=== PATIENT | female | born 1995 | race Caucasian/White ===

== ENCOUNTER 2017-09-13 08:19 | Emergency (ER) | payer OTHER ==
[2017-09-13 08:26] VITALS: BP 115/80; TEMP 99; BMI 32.8
[2017-09-13] MEDS ORDERED: SODIUM CHLORIDE 1,000 ML IV STA ×2 (08:34→11:37)
--- NOTE | 2017-09-13 10:34 | CT ---
EXAM: CT ABDOMEN AND PELVIS HISTORY: Abdominal pain with nausea and vomiting and diarrhea. Previous appendectomy. TECHNIQUE: CT abdomen and pelvis without intravenous contrast. Images were reconstructed using 5 mm section thickness. Reformations were prepared. COMPARISON: 05/19/2010 FINDINGS: Diagnostic limitations exist without including contrast enhanced images. No focal hepatic or splenic lesions. Gallbladder, pancreas, adrenal glands, kidneys and ureters appear normal. Normal abdomina l aorta. Several mesenteric root lymph nodes remain sub-centimeter. Stomach is normal. Appendix has been removed. There is fluid consistency stool in the rectum. Gener al bowel gas pattern is nonobstructive. Uterus and urinary bladder appear normal. No ascites. Ventral abdominal wall is intact. Bones appear normal and lung bases clear. No pneumoperitoneum. IMPRESSION: 1. Fluid consistency stool within the rectum consistent with the patient's history of diarrhea. [place] el gas pattern is normal. No convincing CT evidence of active enterocolitis currently seen. No free air or ascites. 2. Several prominent mesenteric root lymph nodes may be normal for a patient of this age. Mild mese nteric adenitis not excluded.
--- NOTE | 2017-09-13 10:36 | DI ---
EXAM: Chest two views HISTORY: Cough COMPARISON: 07/26/2008 TECHNIQUE: Two views of the chest were performed FINDINGS: The lungs are clear. There is no pleural effusion or pneumothorax. The heart is normal i n size. The mediastinal contour is normal. There are no acute abnormalities of the bones. IMPRESSION: No acute cardiopulmonary process.
[2017-09-13] MEDS ORDERED: TORADOL IVP STA (10:48)
[2017-09-13] MEDS ORDERED: ZOFRAN 4 MG/2 ML IVP STA (10:49)
--- NOTE | 2017-09-13 12:15 | ED.PDOC ---
General ED Provider: Dr. REYES PEREZ Chief Complaint: Nausea/Vomiting Stated Complaint: abdominal pain Time Seen by Physician: 08:30 Mode of Arrival: Walk-In Information Source: Patient Exam Limitations: No limitations Primary Care Provider: LYN RANDALL Nursing and Triage Documentation Reviewed and Agree: Yes Reviewed sepsis parameters & appropriate labs ordered?: Yes System Inflammatory Response Syndrome: Not Applicable Sepsis Protocol: For patient's 13 years and over: Temp is 96.8 and below OR 101 and greater Pulse >90 BPM Resp >20/minute Acutely Altered Mental Status Are patient's symptoms suggestive of a new infection, such as: -Pneumonia -Skin, Soft Tissue -Endocarditis -UTI -Bone, Joint Infection -Implantable Device -Acute Abdominal Infection -Wound Infection -Meningitis -Blood Stream Catheter Infection -Unknown System Inflammatory Response Syndrome: Not Applicable GI Complaint Exam - Vomiting/Diarrhea Complaint/Exam Onset/Duration: 1 day Episodes of Vomiting over last 24 Hours: 1 Episodes of Diarrhea Over Last 24 Hours: 8 Initial Severity: Moderate Current Severity: Moderate Character of Vomiting: Reports: Non-bilious Aggravating: Reports: None Alleviating: Reports: None Associated Signs and Symptoms: Denies: Dizziness, Light-headedness, Melena, Hematemesis, Fever, Abdominal pain, Cramping Non-GI Risk Factors: Reports: None Surgical Obstruction Risk Factors: Reports: None Related Surgical History: Reports: None Abdominal Findings: Present: None Review of Systems - Review Of Systems Constitutional: Reports: No symptoms Eyes: Reports: No symptoms Ears, Nose, Mouth, Throat: Reports: No symptoms Respiratory: Reports: No symptoms Cardiac: Reports: No symptoms GI: Reports: Abdominal pain, Diarrhea : Reports: No symptoms Musculoskeletal: Reports: No symptoms Skin: Reports: No symptoms Neurological: Reports: No symptoms Endocrine: Reports: No symptoms Hematologic/Lymphatic: Reports: No symptoms All Other Systems: Reviewed and Negative Past Medical History - Past Medical History Previously Healthy: Yes Endocrine: Reports: None Cardiovascular: Reports: None Respiratory: Reports: Asthma Hematological: Reports: None Gastrointestinal: Reports: None Genitourinary: Reports: None Neuro/Psych: Reports: None Musculoskeletal: Reports: None Cancer: Reports: None Last Menstrual Period: - Surgical History General Surgical History: Reports: Unknown - Family History Family History: Reports: Unknown - Social History Smoking Status: Never smoker Hx Substance Use: No Alcohol Screening: None Physical Exam - Physical Exam Appearance: Well-appearing, No pain distress, Well-nourished Eyes: ANIA, EOMI, Conjunctiva clear ENT: Ears normal, Nose normal, Oropharynx normal Respiratory: Airway patent, Breath sounds clear, Breath sounds equal, Respirations nonlabored Cardiovascular: RRR, Pulses normal, No rub, No murmur GI/: Soft, Nontender, No masses, Bowel sounds normal, No Organomegaly Musculoskeletal: Normal strength, ROM intact, No edema, No calf tenderness Skin: Warm, Dry, Normal color Neurological: Sensation intact, Motor intact, Reflexes intact, Cranial nerves intact, Alert, Oriented Psychiatric: Affect appropriate, Mood appropriate Interpretation - Radiology Interpretation Radiology Interpretation By: Radiologist Radiology Results: No acute changes Critical Care Note - Critical Care Note Total Time (mins): 0 Course - Course Hematology/Chemistry: 09/13/17 08:41 Orders, Labs, Meds: Lab Review 09/13/17 09/13/17 09/13/17 08:41 08:41 08:41 WBC 11.57 H RBC 4.58 Hgb 13.8 Hct 39.7 MCV 86.7 MCH 30.1 MCHC 34.8 RDW Coeff of Lc 12.6 Plt Count 297 Immature Gran % (Auto) 0.3 Neut % (Auto) 88.3 Lymph % (Auto) 7.5 L [place] % (Auto) 3.4 Eos % (Auto) 0.2 Baso % (Auto) 0.3 Immature Gran # (Auto) 0.0 Neut # 10.2 H Lymph # 0.9 [place] # 0.4 Eos # 0.0 Baso # 0.0 Lactic Acid 5.7 Amylase 38 Lipase 17 Procalcitonin Serum , Qual Urine Color Urine Clarity Urine pH Ur Specific [place] Urine Protein Urine Glucose (UA) Urine Ketones Urine Blood Urine Nitrite Urine Bilirubin Urine Urobilinogen Ur Leukocyte Esterase Influenza A (Rapid) Influenza B (Rapid) 09/13/17 09/13/17 09/13/17 08:41 08:41 08:49 WBC RBC Hgb Hct MCV MCH MCHC RDW Coeff of Lc Plt Count Immature Gran % (Auto) Neut % (Auto) Lymph % (Auto) [place] % (Auto) Eos % (Auto) Baso % (Auto) Immature Gran # (Auto) Neut # Lymph # [place] # Eos # Baso # Lactic Acid Amylase Lipase Procalcitonin 0.07 Serum , Qual Negative Urine Color Urine Clarity Urine pH Ur Specific [place] Urine Protein Urine Glucose (UA) Urine Ketones Urine Blood Urine Nitrite Urine Bilirubin Urine Urobilinogen Ur Leukocyte Esterase Influenza A (Rapid) Negative by naat Influenza B (Rapid) Negative by naat 09/13/17 09:55 WBC RBC Hgb Hct MCV MCH MCHC RDW Coeff of Lc Plt Count Immature Gran % (Auto) Neut % (Auto) Lymph % (Auto) [place] % (Auto) Eos % (Auto) Baso % (Auto) Immature Gran # (Auto) Neut # Lymph # [place] # Eos # Baso # Lactic Acid Amylase Lipase Procalcitonin Serum , Qual Urine Color Yellow Urine Clarity Clear Urine pH 6.0 Ur Specific [place] 1.020 Urine Protein Negative Urine Glucose (UA) Negative Urine Ketones 1+ Urine Blood Negative Urine Nitrite Negative Urine Bilirubin Negative Urine Urobilinogen 0.2 Ur Leukocyte Esterase Negative Influenza A (Rapid) Influenza B (Rapid) Orders Category Date Time Status ED IV/MEDIPORT/POWERPORT .ONCE EMERGENCY 09/13/17 08:34 Active AMYLASE Stat LAB 09/13/17 08:41 Completed BLOOD CULTURE (ED ONLY) Stat LAB 09/13/17 08:41 Received CBC W/ AUTO DIFF Stat LAB 09/13/17 08:41 Completed FLU A/B MOLECULAR Stat LAB 09/13/17 08:49 Completed LACTIC ACID Stat LAB 09/13/17 08:41 Completed LIPASE Stat LAB 09/13/17 08:41 Completed MOLECULAR GROUP A STREP Stat LAB 09/13/17 08:49 Completed PROCALCITONIN Stat LAB 09/13/17 08:41 Completed SERUM Stat LAB 09/13/17 08:41 Completed URINALYSIS C & S IF INDICATED Stat LAB 09/13/17 09:55 Completed 0.9 % Sodium Chloride [Saline Flush] MEDS 09/13/17 08:34 Active 1 syr IVF PRN PRN Ketorolac Tromethamine [Toradol] MEDS 09/13/17 10:48 Discontinued 30 mg IVP ONCE STA Ondansetron HCl/Pf [Zofran 4 mg/2 ml] MEDS 09/13/17 10:49 Discontinued 4 mg IVP ONCE STA Sodium Chloride 0.9% [Sodium Chloride] 1,000 ml MEDS 09/13/17 08:34 Discontinued IV BOLUS Sodium Chloride 0.9% [Sodium Chloride] 1,000 ml MEDS 09/13/17 11:37 Active IV BOLUS CHEST, 2 VIEWS PA & LAT Stat RADS 09/13/17 08:[address] ABDOMEN/PELVIS WO CONTRAST Stat RADS 09/13/17 08:30 Completed Medications Generic Name Dose Route Start Last Admin Trade Name Cathy PRN Reason Stop Dose Admin Sodium Chloride 1,000 mls @ 1,000 mls/hr 09/13/17 11:37 09/13/17 11:39 Sodium Chloride IV 09/13/17 12:36 1,000 mls/hr BOLUS STA Administration Sodium Chloride 1 syr 09/13/17 08:34 Saline Flush IVF PRN PRN To flush IV Discontinued Medications Generic Name Dose Route Start Last Admin Trade Name Freq PRN Reason Stop Dose Admin Sodium Chloride 1,000 mls @ 1,000 mls/hr 09/13/17 08:34 09/13/17 09:10 Sodium Chloride IV 09/13/17 09:33 1,000 mls/hr BOLUS STA Administration Ketorolac Tromethamine 30 mg 09/13/17 10:48 09/13/17 10:55 Toradol IVP 09/13/17 10:49 30 mg ONCE STA Administration Ondansetron HCl 4 mg 09/13/17 10:49 09/13/17 10:56 Zofran 4 Mg/2 Ml IVP 09/13/17 10:50 4 mg ONCE STA Administration Vital Signs: Temp Pulse Resp BP Pulse Ox 09/13/17 08:23 99.0 F 108 H 18 115/80 98 Departure - Departure Time of Disposition: 12:14 Disposition: HOME SELF-CARE Discharge Problem: Nausea, Vomiting, Acute gastroenteritis Instructions: Gastroenteritis (ED), Dehydration (ED), Dehydration in Children ( ED), Acute Nausea and Vomiting in Children (ED) Condition: Good Pt referred to PMD for follow-up: Yes IPMP verified?: Yes Additional Instructions: Please call your Family Physician as soon as possible to schedule a follow-up appointment. Allergies/Adverse Reactions: Allergies cyclopentolate HCl [From Cyclogyl] Adverse Reaction (Verified 09/13/17 08:22) nut - unspecified Adverse Reaction (Verified 09/13/17 08:22) peanut Adverse Reaction (Verified 09/13/17 08:22) Home Medications: Ambulatory Orders Albuterol Sulfate [Albuterol Sulfate Hfa] 2 puff INH Q4H PRN 05/16/13 Etonogestrel/Ethinyl Estradiol [Nuvaring Vaginal Ring] 1 each VG DIRECTED
== END 2017-09-13 12:28 | disposition home or self-care (01) ==
LOC: ED 08:19
DX: K52.9 Noninfective gastroenteritis and colitis, unspecified (principal)
CPT/HCPCS: 36415; 81001; 82150; 83605; 83690; 84145; 84703; 85025; 87040; 87502; 87651; 96361; 96374; 96375; 99283